=== PATIENT | female | born 1935 | race Two or more races ===

== ENCOUNTER 2019-06-11 08:26 | Emergency (ER) | payer OTHER ==
[~2019-06-11] VITALS: Ht 152.4 cm; Wt 42.2 kg
[2019-06-11] MEDS ORDERED: LIPITOR40 MG PO (08:42)
[2019-06-11] MEDS ORDERED: DEPAKOTE ER250 MG PO (08:42)
[2019-06-11] MEDS ORDERED: INDERAL LA80 MG PO (08:42)
[2019-06-11] MEDS ORDERED: PLAVIX75 MG PO (08:42)
== END 2019-06-11 10:06 | disposition home or self-care (01) ==
LOC: ER 08:26 → EDSEX 08:28 → ER 10:06
DX: R53.1 Weakness (principal); F41.8 Other specified anxiety disorders